=== PATIENT | male | born 1965 ===

== ENCOUNTER 2023-05-29 16:17 | Inpatient (IN) | payer MEDICAID, SELFPAY ==
[2023-05-29 16:29] VITALS: BP 145/99; PULSE 84; RESP 18; O2SAT 95
[2023-05-29 16:31] VITALS: BMI 23.6
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
--- NOTE | 2023-05-29 16:56 | PC.NURSE ---
FOUND PIPE IN PT BELONGINGS. SECURITY CALLED AND WITNESSED THIS NURSE DISPOSING OF PIPE.
[2023-05-29] MEDS: nicotine 21 mg Patch 1 PATCH TRANSDERMA (17:15)
[2023-05-29] MEDS: hyDROXYzine 25 mg Capsule 50 MG PO (18:14)
[2023-05-29] MEDS: OLANZapine 5 mg ODT PO (19:02)
[2023-05-29 19:43] VITALS: BP 152/90; PULSE 87; RESP 18; TEMP 36.7; O2SAT 94
[2023-05-29] MEDS: mirtazapine 30 mg Tablet 45 MG PO (20:46)
[2023-05-29] MEDS: famotidine 20 mg Tablet PO (20:46)
[2023-05-29] MEDS: nicotine 2 mg Gum BUCCAL (20:46)
[2023-05-30 06:00] VITALS: BP 134/84; PULSE 66; RESP 16; O2SAT 97
[2023-05-30] MEDS: multivitamin therapeutic Tablet 1 TAB PO (08:15)
[2023-05-30] MEDS: folic acid 1 mg Tablet PO (08:15)
[2023-05-30] MEDS: thiamine 100 mg Tablet PO (08:15)
[2023-05-30] MEDS: lisinopril 20 mg Tablet PO (08:15)
[2023-05-30] MEDS: famotidine 20 mg Tablet PO ×2 (08:16→20:32)
[2023-05-30] MEDS: OLANZapine 5 mg ODT PO ×2 (10:02→20:30)
[2023-05-30] MEDS: nicotine 21 mg Patch 1 PATCH TRANSDERMA (11:15)
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
[2023-05-30 13:58] VITALS: BP 130/82; PULSE 82; RESP 16; TEMP 36.6; O2SAT 97
[2023-05-30] MEDS: naltrexone hcl 50 mg Tablet PO (15:21)
[2023-05-30] MEDS: hyDROXYzine 25 mg Capsule 50 MG PO (17:10)
[2023-05-30] MEDS: mirtazapine 30 mg Tablet 45 MG PO (20:29)
[2023-05-30] MEDS: nicotine 2 mg Gum BUCCAL (21:11)
[2023-05-30 21:18] VITALS: BP 161/90; PULSE 76; RESP 17; TEMP 36.4; O2SAT 97
[2023-05-30] MEDS: LORazepam 2 mg Tablet PO (21:58)
[2023-05-31 06:00] VITALS: BP 138/82; PULSE 72; RESP 18; TEMP 36.5; O2SAT 94
[2023-05-31] MEDS: nicotine 21 mg Patch 1 PATCH TRANSDERMA (08:25)
[2023-05-31] MEDS: multivitamin therapeutic Tablet 1 TAB PO (08:49)
[2023-05-31] MEDS: lisinopril 20 mg Tablet PO (08:49)
[2023-05-31] MEDS: thiamine 100 mg Tablet PO (08:49)
[2023-05-31] MEDS: famotidine 20 mg Tablet PO ×2 (08:49→20:50)
[2023-05-31] MEDS: naltrexone hcl 50 mg Tablet PO (08:49)
[2023-05-31] MEDS: folic acid 1 mg Tablet PO (08:49)
[2023-05-31 13:35] VITALS: BP 155/93; PULSE 81; RESP 17; TEMP 36.4; O2SAT 97
[2023-05-31] MEDS: LORazepam 2 mg Tablet PO (14:22)
[2023-05-31] MEDS: trazodone 50 mg Tablet PO (20:50)
[2023-05-31] MEDS: OLANZapine 5 mg ODT PO (20:50)
[2023-05-31] MEDS: mirtazapine 30 mg Tablet 45 MG PO (20:51)
--- NOTE | 2023-05-31 21:10 | W.PM.NPUPNS ---
Subjective NPU Subjective: 57 year old admitted with MDD, PTSD, Alcohol dependence admitted with continued alcohol abuse, suicidal ideation and worsening depression. He reports feeling calmer on zyprexa and reports no longer feeling as depressed. He reports no side effects from naltrexone and was interested in vivitrol as a deterrent to etoh use. Patient had reported no feelings of hopelessness. No feelings of hopelessness. He was pleasant and cooperative on the milieu. Mental Status Exam MSE Comments: Patient was pleasant and cooperative on interview today. He appeared in no acute distress. His gait was steady with some excess psychomotor activation. There is no evidence of any abnormal involuntary motor movements tics or tremors appreciated. His speech was normal in regards to rate rhythm and prosody. His thought process was linear logical and goal-directed. His mood was described as okay. His affect was mood congruent and less restricted today. His thought content showed no evidence of active homicidal or suicidal ideation. He did not appear to be responding to internal stimuli. There was no clear evidence of delusional thinking. His attention span appeared adequate. His insight was fairl. His judgment was improving. His impulse control appeared better. He was alert and oriented to person place and time. His recent and remote memory appeared grossly intact. Vitals/I&O/Wt Last Vital Signs Temp 97.5 F L 05/31/23 13:35 Pulse 81 05/31/23 13:35 Resp 17 05/31/23 13:35 BP 155/93 05/31/23 13:35 Pulse Ox 97 05/31/23 13:35 O2 Del Method Room Air 05/31/23 06:00 A&P Assessment and plan (1) Major depressive disorder, recurrent episode: (2) PTSD (post-traumatic stress disorder): (3) Alcohol dependence: Plan This is a 57-year-old white male with a history of alcohol dependence along with extended history of major depressive disorder and PTSD who was admitted with depressed mood and reported suicidal ideation. He would likely benefit from a brief hospital stay with further evaluation and likely medication adjustments. He is amenable to pharmacotherapy to manage alcohol dependence as well. 1. Encourage individual, group and milieu therapy. 2.Recommend sober living treatment at the highest level of care to which the patient is willing to commit. 3.Continue q-15 minute checks for safety.? 4. CIWA protocol 5. Will restart outpatient medications. 6. Naltrexone 50mg daily to target alcohol abuse with patient likely a good candidate for vivitrol 7. Zyprexa adjunctively for depression and agitation. Involuntary Hold Information 96 Hour Hold: 96 Hour Involuntary Admission: No Attestations NPU Medical Necessity Statement*: Inpatient hospitalization is medically necessary and deemed to be the clinically appropriate intervention at this time.? We will monitor/initiate medications and make changes as indicated. ?His likely length of stay 3-5 days.. Coding Level of Care Code Acute Code for g Fwd Diagnoses Major depressive disorder, recurrent episode F33.9 PTSD (post-traumatic stress disorder) F43.10 Alcohol dependence F10.20
[2023-05-31 21:34] VITALS: BP 121/86; PULSE 104; RESP 18; TEMP 36.6; O2SAT 96
--- NOTE | 2023-05-31 23:31 | PC.NURSE ---
PT REQUESTS MEDICATION TO HELP HIM SLEEP. PT WAS GIVEN TRAZODONE 50 MG PO ORDERED. PT CAME UP TO NURSES STATION AND SAID I CAN'T SLEEP CAN I HAVE A SANDWICH. PT WAS GIVEN A DRINK AND A SANDWICH. PT THEN WENT TO BED LAID DOWN AND IS CURRENTLY IN BED RESTING WITH EYES CLOSED.
[2023-06-01 06:00] VITALS: BP 135/93; PULSE 84; RESP 18; O2SAT 95
[2023-06-01] MEDS: nicotine 21 mg Patch 1 PATCH TRANSDERMA (06:27)
[2023-06-01] MEDS: naltrexone hcl 50 mg Tablet PO (08:45)
[2023-06-01] MEDS: thiamine 100 mg Tablet PO (08:45)
[2023-06-01] MEDS: famotidine 20 mg Tablet PO (08:45)
[2023-06-01] MEDS: lisinopril 20 mg Tablet PO (08:45)
[2023-06-01] MEDS: multivitamin therapeutic Tablet 1 TAB PO (08:45)
[2023-06-01] MEDS: folic acid 1 mg Tablet PO (08:45)
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
[2023-06-01 11:43] VITALS: BP 135/93; PULSE 84; RESP 18; O2SAT 95
[2023-06-01] MEDS: OLANZapine 5 mg ODT PO (13:03)
--- NOTE | 2023-06-01 14:23 | PC.NURSE ---
written discharge instruction discussed and left with patient. pt stated understanding and compliance. pt waiting on medicaid ride for transportation home.
== END 2023-06-01 14:47 | disposition home or self-care (01) | DRG 885 ==
PROVIDERS: Admitting Provider Psychiatry & Neurology Psychiatry; Visit Provider Psychiatry & Neurology Psychiatry
DX: F33.9 Major depressive disorder, recurrent, unspecified (principal); R45.851 Suicidal ideations; F43.10 Post-traumatic stress disorder, unspecified; F10.10 Alcohol abuse, uncomplicated; Z81.8 Family history of other mental and behavioral disorders; Z62.810 Personal history of physical and sexual abuse in childhood; Z62.811 Personal history of psychological abuse in childhood
CPT/HCPCS: 97165; 99238